=== PATIENT | male | born 1955 | race Caucasian/White ===

== ENCOUNTER → 2022-08-31 | Outpatient (CLI) | payer MEDICARE, OTHER ==
--- NOTE | 2022-08-31 10:41 | CA ---
Exercise Stress Test Report Name: Sammy Traore Exam Date: 08/31/2022 09:11 Exam Location: [facility] Ht (in): 73 Wt (lb): 218 BSA: 2.23 Ordering Phys: January Macdonald MD Referring Phys: ДМИТРИЙ, Technologist: Karlo Mendes Age: 67 Gender: M : 1955 Procedure CPT: Indications: I20.9 ICD-10 Codes: Patient History: Medications: Lisinopril, Vit A,B,C,D, Clacium, Fish Oil, Milk Thistle Meds past 24 hrs: Pretest Chest Pain: STRESS TEST Protocol Exercise Duration (min:sec): 10:[address] Depressions (mm): Angina Score: Kruse Score: Resting HR (bpm): 76 Peak HR (bpm): 142 Resting BP (mmHg): 147 / 91 Peak BP (mmHg): 195 / 73 MPHR: 155 Target HR: 132 % MPHR: 92 METS: 12.7 Total Dose: Peak Dose: Atropine: Double Product: 86105 BP Response: Stress Termination: TARGET HR REACHED/MAX EXERTION Stress Symptoms: NO SYMPTOMS Stress Summary: ECG ANALYSIS Resting ECG: Normal sinus rhythm normal axis normal intervals with PVCs Stress ECG: Patient exercised on Alexi protocol for 10 minutes and 45 seconds achieving 12 mets 85% of predicted maximal heart rate without chest pain or diagnostic ST segment depression the PVCs persisted throughout the exercise CONCLUSIONS Excellent exercise tolerance Negative stress test by EKG criteria Dr. Lane Jensen MD (Electronically Signed) Final Date: 31 August 2022 10:40
== END | disposition home or self-care (01) ==
LOC: RADNMMAIN 08:44
PROVIDERS: ATTEND Internal Medicine
DX: I20.9 Angina pectoris, unspecified (principal)
CPT/HCPCS: 93017

== ENCOUNTER 2023-09-18 12:05 | Day surgery (SDC) | payer MEDICARE, OTHER ==
[2023-09-13 09:59] VITALS: BMI 27.7
[~2023-09-18 12:05] MED LIST: LIDOCAINE 1% (10MG/ML) FOR IV START INTRADERMA PRN; ONDANSETRON 4 MG/2 ML VIAL IVP PRN
[2023-09-18] MEDS: LACTATED RINGERS 1,000 ML IV SCH (12:27)
[2023-09-18 12:35] VITALS: RESP 16; TEMP 98.6
[2023-09-18] MEDS ORDERED: PROPOFOL 10 MG/ML 20 ML VIAL IV ONE (12:36)
--- NOTE | 2023-09-18 12:50 | P.GSHP ---
History of Present Illness H&P Date: 09/18/23 Chief Complaint: Abnormal stool test 68-year-old male here for colonoscopy. Patient had recent Cologuard that was abnormal. No bowel complaints. No family history of colon cancer. He has never had a colonoscopy before. Past Medical History Past Medical History: Hypertension Additional Past Medical History / Comment(s): positive cologuard test History of Any Multi-Drug Resistant Organisms: None Reported Past Surgical History: Tonsillectomy Past Anesthesia/Blood Transfusion Reactions: No Reported Reaction Past Psychological History: No Psychological Hx Reported Smoking Status: Former smoker Past Alcohol Use History: Occasional Additional Past Alcohol Use History / Comment(s): quit smoking 20 years ago. states probably 14 drinks a week. Past Drug Use History: None Reported Medications and Allergies Home Medications Medication Instructions Recorded Confirmed Type lisinopriL 40 mg PO DAILY #14 tab 12/27/09/13/23 Rx Aspirin 325 mg PO DAILY 09/13/23 09/13/23 History Rosuvastatin Calcium 10 mg PO DAILY 09/13/23 09/13/23 History amLODIPine [Norvasc] 5 mg PO DAILY 09/13/23 09/13/23 History hydroCHLOROthiazide 25 mg PO DAILY 09/13/23 09/13/23 History Allergies Allergy/AdvReac Type Severity Reaction Status Date / Time No Known Allergies Allergy Verified 09/18/23 12:17 Surgical - Exam Vital Signs Temp Pulse Resp BP Pulse Ox 98.6 F 79 16 130/74 97 09/18/23 12:21 09/18/23 12:21 09/18/23 12:21 09/18/23 12:21 09/18/23 12:21 Physical exam: General: Well-developed, well-nourished HEENT: Normocephalic, sclerae nonicteric Abdomen: Nontender, nondistended Extremities: No edema Neuro: Alert and oriented Assessment and Plan (1) Abnormal stool test Narrative/Plan: Will proceed with colonoscopy at this time. Current Visit: Yes Status: Acute Code(s): R19.5 - OTHER FECAL ABNORMALITIES SNOMED Code(s): 408636008
--- NOTE | 2023-09-18 13:04 | P.PCN ---
Date of Procedure: 09/18/23 Procedure(s) Performed: PREOPERATIVE DIAGNOSIS: Abnormal stool study POSTOPERATIVE DIAGNOSIS: Colon polyps, diverticulosis PROCEDURE: Colonoscopy with snare polypectomy ANESTHESIA: MAC SURGEON: Nigel Briceño M.D. SPECIMENS: Colon polyps ENDOSCOPIC PROCEDURE: The patient was placed on the endoscopy table in the left decubitus position. The Olympus colonoscope was inserted into the anus and passed under direct visualization to the base of the cecum. The appendiceal orifice was visualized. From that point the scope was slowly withdrawn inspecting all surfaces carefully. There were no neoplastic inflammatory or polypoid lesions throughout the cecum or ascending colon. In the transverse colon there were 3 separate polyps all removed using the snare with cautery technique. The descending and sigmoid colon appeared normal. A very small polyp in the rectum was seen and removed in a similar fashion. No specimen from the rectal polyp was noted as it was essentially fulgurated. The patient had moderate scattered diverticulosis as well. Digital rectal examination was normal. The patient was taken to the recovery room in stable condition per anesthesia guidelines. RECOMMENDATIONS: Await biopsy results. Anticipate repeat colonoscopy 5 years.
[2023-09-18 13:34] VITALS: BP 124/82; PULSE 94
== END 2023-09-18 13:42 | disposition home or self-care (01) ==
LOC: ORWHC2ENDO 12:05
PROVIDERS: ATTEND Surgery
DX: K63.5 Polyp of colon (principal); K57.30 Diverticulosis of large intestine without perforation or abscess without bleeding; I10 Essential (primary) hypertension; F10.90 Alcohol use, unspecified, uncomplicated; Z87.891 Personal history of nicotine dependence; Z79.82 Long term (current) use of aspirin; Z79.899 Other long term (current) drug therapy
CPT/HCPCS: 88305; 45385; J2704